=== PATIENT | male | born 1975 | race Hispanic/Latino ===

== ENCOUNTER 2017-04-13 20:08 | Inpatient (IN) | payer MEDICAID, OTHER ==
[2017-04-13 20:09] VITALS: BMI 23.6
[2017-04-13 20:19] VITALS: O2SAT 98
--- NOTE | 2017-04-13 20:27 | C.PDOC ---
History Of Present Illness Patient is transferred to the ED by ambulance from [facility] for admission. Patient is accepted and admitted by Dr. Siddiqi for depression and bipolar disorder. Patient is medically cleared. Time Seen by Provider: 04/13/17 20:25 Chief Complaint (Nursing): Psychiatric Evaluation History Per: Patient, EMS History/Exam Limitations: no limitations Onset/Duration Of Symptoms: Other Suicide/Self Injury Attempted (Context): None Modifying Factor(s): None Severity: None Pain Scale Rating Of: 0 Associated Symptoms: Depression Recent travel outside of the [place]: No Additional History Per: EMS Past Medical History Reviewed: Historical Data, Nursing Documentation, Vital Signs Vital Signs: Last Vital Signs Temp 98.7 F 04/13/17 20:14 Pulse 104 H 04/13/17 20:14 Resp 20 04/13/17 20:14 BP 132/75 04/13/17 20:14 Pulse Ox 98 04/13/17 20:30 - Medical History PMH: Anxiety, Bipolar Disorder, Depression, Post Traumatic Stress Disorder - [facility] Procedures GROUP PSYCHOTHERAPY (05/07/16) MEDICATION MANAGEMENT (05/07/16) Family History: States: Unknown Family Hx - Social History Hx Tobacco Use: No Hx Alcohol Use: No Hx Substance Use: No - Immunization History Hx Tetanus Toxoid Vaccination: No Hx Influenza Vaccination: Yes (2015) Hx Pneumococcal Vaccination: Yes Review Of Systems Constitutional: Negative for: Fever, Chills Respiratory: Negative for: Shortness of Breath Gastrointestinal: Negative for: Nausea, Vomiting Physical Exam - Physical Exam Appears: Non-toxic, No Acute Distress Skin: Warm, Dry Head: Atraumatic, Normacephalic Eye(s): bilateral: EOMI Neck: Supple Chest: Symmetrical Cardiovascular: Rhythm Regular Respiratory: No Rales, No Rhonchi, No Wheezing Gastrointestinal/Abdominal: Soft, No Tenderness Extremity: Bilateral: Atraumatic Neurological/Psych: Oriented x3 ED Course And Treatment O2 Sat by Pulse Oximetry: 98 (room air) Pulse Ox Interpretation: Normal Disposition Discussed With : Adi Siddiqi Comment: accepted the pt on his service and took over the care at 8:26 PM Doctor Will See Patient In The: Hospital Counseled Patient/Family Regarding: Studies Performed, Diagnosis - Disposition Disposition: HOSPITALIZED Disposition Time: 20:26 Condition: FAIR - POA Present On Arrival: None - Clinical Impression Clinical Impression: Bipolar 1 disorder - Scribe Statement The provider has reviewed the documentation as recorded by the Scribe Keren Mckinney Provider Attestation: All medical record entries made by the Scribe were at my direction and personally dictated by me. I have reviewed the chart and agree that the record accurately reflects my personal performance of the history, physical exam, medical decision making, and the department course for this patient. I have also personally directed, reviewed, and agree with the discharge instructions and disposition. Decision To Admit - Pt Status Changed To: Hospital Disposition Of: Inpatient - Admit Certification Admit to Inpatient:: After my assessment, the patient will require hospitalization for at least two midnights. This is because of the severity of symptoms shown, intensity of services needed, and/or the medical risk in this patient being treated as an outpatient. - InPatient: Physician Admission Certification: I certify that this patient requires 2 or more midnights of care for the following reason:: After my assessment, the patient will require hospitalization for at least two midnights. This is because of the severity of symptoms shown, intensity of services needed, and/or the medical risk in this patient being treated as an outpatient. - . Bed Request Type: Psychiatry Admitting Physician: Adi Siddiqi Patient Diagnosis: Bipolar 1 disorder
[2017-04-14 07:45] VITALS: RESP 20
[2017-04-14] MEDS: Divalproex 500 mg DR Tab PO SCH ×2 (12:01→17:38)
[2017-04-14] MEDS: Apap-Butalbital-Caffeine 325-50-40mg Tab PO PRN ×2 (12:01→20:02)
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
[2017-04-15] MEDS: Divalproex 500 mg DR Tab PO SCH ×2 (09:51→17:14)
[2017-04-15 13:08] VITALS: TEMP 97.7
--- NOTE | 2017-04-15 15:11 | PCM.PYCHPN ---
Psychiatric Progress Note - Psychiatric Progress Note Patient seen today, length of contact: 16 min Patient Chief Complaint: "I am feeling better." Problems Identified/Issues Discussed: The pt is seen, chart reviewed, case discussed with staff. Patient reports feeling better today and feels anxious. Patient reports he has trouble falling asleep but is able to stay asleep and has a good appetite. Denies withdrawal symptoms and any side effects to medication. Denies suicidal and homicidal ideation, auditory and visual hallucinations, paranoia. Plans include staying at a friend's hotel room until [facility] in April. Mental Status Examination - Cognitive Function Orientation: Person, Place, Situation, Time Memory: Intact Attention: WNL Concentration: WNL - Mood Mood: Anxious - Affect Affect: Constricted - Speech Speech: Appropriate, Pressured - Formal Thought Process Formal Thought Process: No Impairment - Suicidal Ideation Suicidal Ideation: No - Homicidal Ideation Homicidal Ideation: No Goal/Treatment Plan - Goal/Treatment Plan Need for Continued Stay: Discharge may exacerbated symptoms Progress Toward Problem(s) and Goals/Treatment Plan: Paxil for depression Gabapentin for anxiety and cocaine wdw Risperdal for irritability Depakote for mood sxs (dose increased) VA level Support and psychoeducation MD and CBT Refer to [facility] or [facility]
[2017-04-15 15:59] VITALS: BP 130/81; PULSE 94
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
== END 2017-04-16 10:00 | disposition home or self-care (01) | DRG 430 ==
LOC: C.ER 20:08 → C.5E 20:27
PROVIDERS: ADMIT Psychiatry & Neurology Psychiatry; ATTEND Psychiatry & Neurology Psychiatry
DX: F33.1 Major depressive disorder, recurrent, moderate (principal); F41.9 Anxiety disorder, unspecified; F14.90 Cocaine use, unspecified, uncomplicated; F60.89 Other specific personality disorders; F17.200 Nicotine dependence, unspecified, uncomplicated; F43.10 Post-traumatic stress disorder, unspecified; Z59.0 Homelessness; Z68.21 Body mass index [BMI] 21.0-21.9, adult

== ENCOUNTER 2017-04-20 10:08 | Emergency (ER) | payer MEDICAID ==
[2017-04-20 10:27] VITALS: RESP 18; TEMP 97.7
--- NOTE | 2017-04-20 11:29 | C.PDOC ---
History Of Present Illness 41 year old male with a history of PTSD and ADD was recently admitted and discharged on various psychiatric medications. Patient returns today with questions about the medications, including concerns about side effects. Patient denies any SI/HI, hallucinations, or any other complaints. Time Seen by Provider: 04/20/17 11:02 Chief Complaint (Nursing): Psychiatric Evaluation History Per: Patient History/Exam Limitations: no limitations Onset/Duration Of Symptoms: Hrs, Waxing/Waning Suicide/Self Injury Attempted (Context): None Modifying Factor(s): None Severity: None Associated Symptoms: denies: Suicidal Thoughts, Suicidal Plan Recent travel outside of the [place]: No Past Medical History Reviewed: Historical Data, Nursing Documentation, Vital Signs Vital Signs: Last Vital Signs Temp 97.7 F 04/20/17 10:26 Pulse 76 04/20/17 14:05 Resp 18 04/20/17 14:05 BP 129/73 04/20/17 14:05 Pulse Ox 97 04/20/17 14:05 - Medical History PMH: Anxiety, Bipolar Disorder, Depression Denies: Chronic Kidney Disease, Seizures - [facility] Procedures MEDICATION MANAGEMENT (04/12/17) Family History: States: No Known Family Hx - Social History Hx Alcohol Use: No Hx Substance Use: Yes (LSD and Cocaine) - Immunization History Hx Tetanus Toxoid Vaccination: No Hx Influenza Vaccination: No Hx Pneumococcal Vaccination: No Review Of Systems Except As Marked, All Systems Reviewed And Found Negative. Constitutional: Negative for: Fever, Chills Gastrointestinal: Negative for: Nausea, Vomiting, Diarrhea Psych: Positive for: Other (Questions regarding the side effects of his prescribed psychiatric medications.). Negative for: Suicidal ideation Physical Exam - Physical Exam Additional Physical Exam Comments: Constitutional: No acute distress. Head: Normocephalic. Atraumatic. Eyes: PERRL. ENT: Moist mucous membranes. Neck: Supple. Cardiovascular: Regular rate. Radial pulse 2+ bilaterally. Chest: No tenderness. Respiratory: Clear to auscultation bilaterally. GI: Soft. Nontender. Nondistended. Back: No CVA tenderness. Musculoskeletal: No tenderness or swelling of extremities. Skin: No rash. Neurologic: Alert, no focal deficit. ED Course And Treatment - Laboratory Results Result Diagrams: 04/20/17 11:40 04/20/17 11:40 O2 Sat by Pulse Oximetry: 98 Medical Decision Making Medical Decision Making: Cleared by Psych for discharge. Patient left ER without ER discharge papers. Disposition - Disposition Disposition: HOME/ ROUTINE Disposition Time: 12:13 Condition: STABLE - Clinical Impression Clinical Impression: Review of medication - Scribe Statement The provider has reviewed the documentation as recorded by the Scribe Chauncey Raines All medical record entries made by the Dahliaibe were at my direction and personally dictated by me. I have reviewed the chart and agree that the record accurately reflects my personal performance of the history, physical exam, medical decision making, and the department course for this patient. I have also personally directed, reviewed, and agree with the discharge instructions and disposition.
[2017-04-20 11:44] LABS: BASO % 0.6 % (0.0-2.0); EOS # 0.1 K/uL (0.0-0.7); EOS % 1.2 % (0.0-4.0); HEMATOCRIT 40.9 % (35.0-51.0); LYMPH # 2.1 K/uL (1.0-4.3); MEAN CELL VOLUME 94.2 fL (80.0-94.0); MEAN CORPUSCULAR HEMOGLOBIN 32.3 pg (27.0-31.0); MEAN CORPUSCULAR HGB CONC 34.3 g/dL (33.0-37.0); MEAN PLATELET VOLUME 6.7 fL (7.2-11.7); MONO # 0.7 K/uL (0.0-0.8); MONO % 9.1 % (0.0-10.0); WHITE BLOOD COUNT 7.3 K/uL (4.8-10.8)
[2017-04-20 11:46] LABS: RBC URINE < 1 /hpf (0-3); URINE BILIRUBIN NEGATIVE (NEGATIVE); URINE BLOOD NEGATIVE (NEGATIVE); URINE COLOR Yellow (YELLOW); URINE GLUCOSE (UA) NORMAL (Normal); URINE KETONE NEGATIVE (NEGATIVE); URINE LEUKOCYTE ESTERASE NEG Leu/uL (Negative); URINE PROTEIN NEGATIVE (NEGATIVE); URINE UROBILINOGEN NORMAL mg/dL (0.2-1.0); WBC URINE < 1 /hpf (0-5)
[2017-04-20 11:56] LABS: CHLORIDE 98 mmol/L (98-107); SODIUM 138 mmol/L (132-148)
[2017-04-20 11:58] LABS: BILIRUBIN,TOTAL 0.6 mg/dL (0.2-1.3); GFR AFRICAN-AMERICAN > 60
[2017-04-20 11:59] LABS: ALB/GLOB RATIO 1.5 (1.0-2.1); ALKALINE PHOSPHATASE 59 U/L (38-126); ALT/SGPT 26 U/L (21-72); AST/SGOT 25 U/L (17-59); BLOOD UREA NITROGEN 15 mg/dL (9-20); CALCIUM 8.8 mg/dl (8.6-10.4); CARBON DIOXIDE 29 mmol/L (22-30); GLUCOSE,RANDOM 100 mg/dL (75-110); TOTAL PROTEIN 6.8 g/dL (6.3-8.3)
[2017-04-20 12:00] LABS: ALCOHOL SERUM < 10 mg/dl (0-10)
[2017-04-20 14:22] VITALS: BP 129/73; PULSE 76
[2017-04-20 14:42] VITALS: O2SAT 98
== END 2017-04-20 14:05 | disposition home or self-care (01) ==
LOC: C.ER 10:08 → MERGE 10:08 → C.ER 14:05
DX: Z04.8 Encounter for examination and observation for other specified reasons (principal)

== ENCOUNTER 2017-05-04 22:17 | Emergency (ER) | payer MEDICAID ==
[2017-05-04 22:17] VITALS: BMI 23.6
[2017-05-04] MEDS ORDERED: Lidocaine 1% Inj (20ml) INFIL STA ×2 (22:46)
[2017-05-04] MEDS ORDERED: Lidocaine 1% Inj (20ml) ONE (22:53)
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
[2017-05-04 23:53] VITALS: BP 156/99; PULSE 81; RESP 16; TEMP 97.9
[2017-05-05 00:12] VITALS: O2SAT 96
== END 2017-05-05 00:39 | disposition home or self-care (01) ==
LOC: C.ER 22:17
DX: S81.811A Laceration without foreign body, right lower leg, initial encounter (principal); X99.1XXA Assault by knife, initial encounter; Z23 Encounter for immunization

== ENCOUNTER 2017-05-09 23:59 | Emergency (ER) | payer MEDICAID ==
[2017-05-10 00:15] VITALS: BP 158/97; PULSE 107; RESP 20; TEMP 98.6; O2SAT 97
--- NOTE | 2017-05-10 00:38 | C.PDOC ---
History Of Present Illness 41 yo male come in for re-evaluation of Right knee laceration closed here in ED by halima on 05/04/17. Pt reports, for past few days developed increase pain and clear oozing from wound. Pt admits, took yesterday last dose of antibiotic. Pt admits, "woke a lot and was on sun today". Otherwise, pt denies fever, chills, swelling, denies weakness, sensory or vascular deficits to Right leg. Ambulate to ED for evaluation, not in any apparent distress. Time Seen by Provider: 05/10/17 00:15 Chief Complaint (Nursing): Wound Check History Per: Patient Past Medical History Reviewed: Historical Data, Nursing Documentation, Vital Signs Vital Signs: Last Vital Signs Temp 98.6 F 05/10/17 00:12 Pulse 107 H 05/10/17 00:12 Resp 20 05/10/17 00:12 BP 158/97 H 05/10/17 00:12 Pulse Ox 97 05/10/17 00:12 - Medical History PMH: Anxiety, Bipolar Disorder, Depression Denies: Chronic Kidney Disease - [facility] Procedures MEDICATION MANAGEMENT (04/12/17) Family History: States: Unknown Family Hx - Social History Hx Alcohol Use: Yes Hx Substance Use: Yes (LSD and Cocaine) - Immunization History Hx Tetanus Toxoid Vaccination: Yes Hx Influenza Vaccination: No Hx Pneumococcal Vaccination: No Review Of Systems Except As Marked, All Systems Reviewed And Found Negative. Constitutional: Negative for: Fever, Chills Musculoskeletal: Positive for: Leg Pain Skin: Positive for: Lesions Neurological: Negative for: Weakness, Numbness Physical Exam - Physical Exam Appears: Well, Non-toxic, No Acute Distress Skin: Normal Color, Warm Extremity: Normal ROM (RLE), Tenderness (Right inner knee overlying laceration that closed with halima, with mild erythema, clear oozing noted from wound. No proximal streaking. No flactulance.), No Calf Tenderness (right), Capillary Refill (less than 2sec to Right foot), No Deformity Neurological/Psych: Oriented x3, Normal Speech, Normal Motor, Normal Sensation, Normal Reflexes ED Course And Treatment O2 Sat by Pulse Oximetry: 97 Progress Note: Was unable to find records from previous ED visit from 05/04/17 when patient claimed had laceration repaired with halima here in ED and received abx tx. On re-eavluation, pt is afebrile, hemodynamicaly stable. Non- toxic. RLE: well healing laceration over inner aspect Right knee with mild erythema and clear wound oozing, no flactulance. FAROM, no neurovascular deficits. Wound was cleaned with peroxide, topical abx cream applied, jacob wrap applied to Right knee. Abx oraly given. Pt advised on wound care. ref. to F/ u with PMD in 2 days for wound re-check. return to ED at any time if any worsening or new changes. Disposition Counseled Patient/Family Regarding: Diagnosis, Need For Followup, Rx Given - Disposition Referrals: Iron Clement MD [Staff Provider] - Disposition: HOME/ ROUTINE Disposition Time: 00:36 Condition: STABLE Additional Instructions: APply jacob wrap to Right knee when ambulatory Take medication as prescribed Keep leg elevated, apply ice to area Follow up with PMD in 2-3 days for wound re-check. [place] removal in 10 days return to ED if any worsening or new changes. Prescriptions: Doxycycline Hyclate [Doryx] 100 mg PO BID #14 cap traMADol [Ultram] 50 mg PO TID #7 tab Instructions: Staple Care (ED) - Clinical Impression Clinical Impression: Infection of skin, Laceration
[2017-05-10] MEDS ORDERED: Bacitracin 500 Units/gm Oint Foilpak UD ONE (00:45)
== END 2017-05-10 00:53 | disposition home or self-care (01) ==
LOC: MERGE 23:59 → C.ER 23:59
DX: T81.4XXA Infection following a procedure, initial encounter (principal); Y84.8 Other medical procedures as the cause of abnormal reaction of the patient, or of later complication, without mention of misadventure at the time of the procedure; Y92.89 Other specified places as the place of occurrence of the external cause

== ENCOUNTER 2017-05-13 08:40 | Emergency (ER) | payer MEDICAID ==
[2017-05-13 08:57] VITALS: RESP 18; BMI 22.8
--- NOTE | 2017-05-13 09:16 | C.PDOC ---
History Of Present Illness 41 year old male patient presents to the ED for a wound evaluation and possible staple removal. Patient has a laceration to the right knee that was closed here in the ED by halima on 05/04/17. Patient states he has been compliant with his antibiotics. He also notes the wound has been healing well, but there is some irritation to the top portion of the laceration. Patient denies any discharge or fever. Patient is requesting a refill of Tramadol and psych medications. Patient states he is pending outpatient psych appointment on 05/21/17. FOR WOUND REEVAL POSSIBLE STAPLE REMOVAL. Right knee laceration closed here in ED by halima on 05/04/17. COMPLIANT W ABX. STATES HEALING WELL, CO IRRITATION TOP PORTION OF LAC. NO DC, FEVER. PS HAS BEEN ALSO REQUESTING REFILL TRAMADOL AND PSYCH MEDS. STATES PENDING OUTPT PSYCH APPT 05/21. EXAM NAD SKIN HALIMA IN PLACE INNER R KNEE. NO GROSS DEHISC, MIN LOCAL ERYTHEMA NONTEND PROC 6 HALIMA REMOVED DISTAL WOUND. MILD WOUND DEHISC. CONCERN FOR ADDL DEHISC, REMAINDER HALIMA LEFT IN PLACE. PT TOLERATED WELL MDM PT ADVISED RETURN 05/19 FOR REEVAL. PS WAS PREVIOUSLY ADVISED WOUND MAY HAVE DIFF HEALING DUE TO CONSTANT JOIN MOTION OF LAC LOCATION. ADVISED FUTURE POSSIBLE NEED TO SEE PIPE TESTER/PLASTIC SURG. VOICES UNDERSTANDING. ADVISED UNABLE TO FILL PAXIL AND NEEDS TO SEE PSYCH FOR DETENTION PSYCH MED REFILL. Time Seen by Provider: 05/13/17 09:14 Chief Complaint (Nursing): Suture/Staple Removal History Per: Patient History/Exam Limitations: no limitations Onset/Duration Of Symptoms: Days Ago (9) Current Symptoms Are (Timing): Still Present Location Of Injury: Right: Knee Quality Of Symptoms: Other (irritation, healing well) Severity: None Pain Scale Rating Of: 0 Recent travel outside of the [place]: No Additional History Per: Patient Past Medical History Reviewed: Historical Data, Nursing Documentation, Vital Signs Vital Signs: Last Vital Signs Temp 98.3 F 05/13/17 10:15 Pulse 68 05/13/17 10:15 Resp 18 05/13/17 10:15 BP 130/87 05/13/17 10:15 Pulse Ox 100 05/13/17 10:38 - Medical History PMH: Anxiety, Bipolar Disorder, Depression, Post Traumatic Stress Disorder - [facility] Procedures GROUP PSYCHOTHERAPY (05/07/16) MEDICATION MANAGEMENT (04/12/17) Family History: States: Unknown Family Hx - Social History Hx Tobacco Use: No Hx Alcohol Use: Yes Hx Substance Use: Yes - Immunization History Hx Tetanus Toxoid Vaccination: No Hx Influenza Vaccination: Yes (2016) Hx Pneumococcal Vaccination: No Review Of Systems Except As Marked, All Systems Reviewed And Found Negative. Constitutional: Negative for: Fever Musculoskeletal: Negative for: Other (right knee discharge) Skin: Positive for: Other (right knee healing laceration with halima; irritation) Physical Exam - Physical Exam Appears: Non-toxic, No Acute Distress Skin: Warm, Dry, Other (halima in place to inner right knee; minimal local erythema; non-tender; no gross dehisc) Cardiovascular: Rhythm Regular Neurological/Psych: Oriented x3, Normal Motor, Normal Sensation ED Course And Treatment O2 Sat by Pulse Oximetry: 100 (room air) Pulse Ox Interpretation: Normal Procedure: Blank - Procedure Procedure:: staple removal - Performed by: Performed by:: Attending physician - Location Location: Right, Knee - Description Discription of Procedure: 05/13/17 (6 halima removed from distal wound to right knee. mild wound dehisc. concern for additional dehisc. remainder of halima were left in place.) - Patient Tolerated Procedure Patient Tolerated Procedure:: Well Procedure: Wound Repair - Time Out Time Out: Patient ID confirmed Progress - Data Reviewed Data Reviewed: Old records Medical Decision Making Medical Decision Making: Patient is advised to return on 05/19/17 for re-evaluation. Patient states he was previously advised that wound may have difficulty healing due to constant joint motion of laceration location. Patient is advised future possible need to see waste/materials exchange specialist/plastic surgeon. Patient voices understanding. He is advised that the ED is unable to fill Paxil and needs follow up with psych for fdc psych medication refills. Disposition Counseled Patient/Family Regarding: Diagnosis, Need For Followup, Rx Given - Disposition Referrals: [facility] [Outside] [facility] [Outside] [facility] [Outside] [facility] [Outside] Disposition: HOME/ ROUTINE Disposition Time: 09:31 Condition: IMPROVED Prescriptions: Divalproex [Depakote DR(*BID*)] 500 mg PO BID #28 ect Gabapentin [Neurontin] 600 mg PO TID #42 tab Tramadol HCl [Ultram] 50 mg PO QID #20 tab Instructions: Staple Care (ED) - Clinical Impression Clinical Impression: Removal of staple, Medication refill - Scribe Statement The provider has reviewed the documentation as recorded by the Scribe Keren Mckinney Provider Attestation: All medical record entries made by the Scribe were at my direction and personally dictated by me. I have reviewed the chart and agree that the record accurately reflects my personal performance of the history, physical exam, medical decision making, and the department course for this patient. I have also personally directed, reviewed, and agree with the discharge instructions and disposition.
[2017-05-13] MEDS ORDERED: Bacitracin 500 Units/gm Oint Foilpak UD ONE (09:55)
[2017-05-13 10:16] VITALS: BP 130/87; PULSE 68; TEMP 98.3
[2017-05-13 10:26] VITALS: O2SAT 100
== END 2017-05-13 10:12 | disposition home or self-care (01) ==
LOC: C.ER 08:40
DX: Z48.02 Encounter for removal of sutures (principal); Z76.0 Encounter for issue of repeat prescription

== ENCOUNTER 2017-05-18 11:13 | Emergency (ER) | payer MEDICAID ==
[2017-05-18 11:14] VITALS: BMI 23.6
[2017-05-18 11:19] VITALS: BP 136/87; TEMP 98.7; O2SAT 98
--- NOTE | 2017-05-18 12:08 | C.PDOC ---
History Of Present Illness 41 y/o male presents to the ED for staple removal and wound check on his right lower leg. Patient was seen in ED by this physician after he sustained a laceration on 05/04. Halima applied to affected area. Patient was evaluated in ED around 5 days ago and underwent removal of a few halima. Patient now presents to remove the remaining halima. He denies fever, chills, pain, swelling or discharge from the affected area. Time Seen by Provider: 05/18/17 12:00 Chief Complaint (Nursing): Suture/Staple Removal History Per: Patient History/Exam Limitations: no limitations Onset/Duration Of Symptoms: Days Ago Current Symptoms Are (Timing): Still Present Quality Of Symptoms: denies: Painful, Itching, Swollen, Draining Additional History Per: Patient Past Medical History Reviewed: Historical Data, Nursing Documentation, Vital Signs Vital Signs: Last Vital Signs Temp 98.7 F 05/18/17 11:19 Pulse 85 05/18/17 12:46 Resp 18 05/18/17 12:46 BP 136/87 05/18/17 11:19 Pulse Ox 98 05/18/17 13:55 - Medical History PMH: Anxiety, Bipolar Disorder, Depression, Post Traumatic Stress Disorder Denies: Diabetes, Hepatitis, HIV, HTN, Chronic Kidney Disease, Seizures, Sexually Transmitted Disease Surgical History: No Surg Hx - [facility] Procedures GROUP PSYCHOTHERAPY (05/07/16) MEDICATION MANAGEMENT (04/12/17) Family History: States: Unknown Family Hx - Social History Hx Tobacco Use: No Hx Alcohol Use: No Hx Substance Use: No - Immunization History Hx Tetanus Toxoid Vaccination: No Hx Influenza Vaccination: Yes (2015) Hx Pneumococcal Vaccination: No Review Of Systems Except As Marked, All Systems Reviewed And Found Negative. Skin: Positive for: Other (+wound check/staple removal ) Physical Exam - Physical Exam Appears: Non-toxic, No Acute Distress Skin: Normal Color, Warm, Dry, Other (wound is clean, dry, intact. no signs of infection ) Head: Atraumatic Eye(s): bilateral: Normal Inspection Extremity: Normal ROM, No Tenderness, Capillary Refill (less than 2 seconds ), No Deformity, No Swelling Neurological/Psych: Normal Speech, Normal Cognition Gait: Steady ED Course And Treatment O2 Sat by Pulse Oximetry: 98 (on RA) Pulse Ox Interpretation: Normal Progress Note: around 20 halima removed. patient tolerated well. Medical Decision Making Medical Decision Making: staple removal from lac 6/5, well healed, no s/s of infection Disposition Doctor Will See Patient In The: Office Counseled Patient/Family Regarding: Studies Performed, Diagnosis - Disposition Referrals: [facility] [Outside] Disposition: HOME/ ROUTINE Disposition Time: 12:10 Condition: GOOD Additional Instructions: keep wound clean and dry after washing with soap and water daily follow-up in our outpatient clinic as needed. Instructions: Staple Care (ED) - Clinical Impression Clinical Impression: Removal of staple - Scribe Statement The provider has reviewed the documentation as recorded by the Scribe (Valarie Mckinney) Provider Attestation: All medical record entries made by the Scribe were at my direction and personally dictated by me. I have reviewed the chart and agree that the record accurately reflects my personal performance of the history, physical exam, medical decision making, and the department course for this patient. I have also personally directed, reviewed, and agree with the discharge instructions and disposition.
[2017-05-18] MEDS ORDERED: Bacitracin 500 Units/gm Oint Foilpak UD ONE (12:21)
[2017-05-18 12:47] VITALS: PULSE 85; RESP 18
== END 2017-05-18 12:55 | disposition home or self-care (01) ==
LOC: C.ER 11:13
DX: Z48.02 Encounter for removal of sutures (principal)

== ENCOUNTER 2017-09-18 14:27 | Emergency (ER) | payer MEDICAID ==
[2017-09-18 14:27] VITALS: BMI 23.6
[2017-09-18 14:34] VITALS: TEMP 97.7
[2017-09-18] MEDS ORDERED: Oxycodone/Acetaminophen 5/325 mg Tab PO STA (15:10)
[2017-09-18] MEDS ORDERED: Oxycodone/Acetaminophen 5/325 mg Tab ONE (15:17)
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
[2017-09-18 16:09] VITALS: BP 136/90; PULSE 81; RESP 18
[2017-09-18 16:27] VITALS: O2SAT 99
--- NOTE | 2017-09-18 18:26 | RAD ---
PROCEDURE: Radiographs of the Chest and Left Ribs. HISTORY: left lower rib pain, s.p injury COMPARISON: 12/07/2016.. TECHNIQUE: Frontal radiograph of the chest and multiple oblique radiographs of the left ribs were obtained. FINDINGS: LEFT RIBS: No fracture or focal lesion visualized. LUNGS: Clear. PLEURA: No pneumothorax or pleural fluid. CARDIOVASCULAR: Normal sized heart. No pulmonary vascular congestion. OTHER FINDINGS: None. IMPRESSION: Unremarkable radiographs of the chest and left ribs. No left rib fracture. Concordant results with the preliminary interpretation rendered by the emergency department physician procedure.
== END 2017-09-18 16:12 | disposition home or self-care (01) ==
LOC: C.ER 14:27
DX: S22.32XA Fracture of one rib, left side, initial encounter for closed fracture (principal); W50.0XXA Accidental hit or strike by another person, initial encounter; Y93.71 Activity, boxing